=== PATIENT | male | born 2000 | race Caucasian/White ===

== ENCOUNTER 2025-05-27 12:56 | Emergency (ER) | payer MEDICAID ==
[~2025-05-27] VITALS: Ht 180.3 cm; Wt 87.0 kg
[2025-05-27 13:01] VITALS: O2SAT 99
[2025-05-27] MEDS: TETANUS, DIPHTHERIA, PERTUSSIS VAC/PF 0.5ML (>10YR OLD) IM ONE (14:15)
[2025-05-27] MEDS: LIDOCAINE HCL 1% 20ML VIAL INL ONE (14:18)
[2025-05-27] MEDS: BACITRACIN ZINC OINT UDPKT TOP ONE (14:18)
[2025-05-27] MEDS ORDERED: BO1 TP (16:37)
[2025-05-27] MEDS ORDERED: CEPH500T MT (16:37)
[2025-05-27 17:09] VITALS: BP 132/82; PULSE 88; RESP 15; TEMP 36.9; O2SAT 99
== END 2025-05-27 17:10 | disposition home or self-care (01) ==
LOC: ER 12:56
DX: S81.812A Laceration without foreign body, left lower leg, initial encounter (principal); Z79.899 Other long term (current) drug therapy; X58.XXXA Exposure to other specified factors, initial encounter; Y93.89 Activity, other specified; Y92.89 Other specified places as the place of occurrence of the external cause; Y99.8 Other external cause status
CPT/HCPCS: 90715; 12002; 90471; 99283; J2003; Z7610 ×3

== ENCOUNTER 2025-06-05 12:59 | Emergency (ER) | payer MEDICAID ==
[~2025-06-05] VITALS: Ht 172.7 cm; Wt 78.0 kg
[~2025-06-05 12:59] MED LIST: BO1 TP; CEPH500T MT
[2025-06-05 13:04] VITALS: O2SAT 100
[2025-06-05 14:27] VITALS: BP 116/64; PULSE 61; RESP 18; TEMP 37.1; O2SAT 100
== END 2025-06-05 14:28 | disposition home or self-care (01) ==
LOC: ER 12:59
DX: S81.812D Laceration without foreign body, left lower leg, subsequent encounter (principal); Z48.02 Encounter for removal of sutures; X58.XXXA Exposure to other specified factors, initial encounter
CPT/HCPCS: 99281; 99282

== ENCOUNTER 2025-06-13 08:08 | Emergency (ER) | payer MEDICAID ==
[~2025-06-13] VITALS: Ht 170.2 cm; Wt 75.0 kg
[2025-06-13 08:16] VITALS: O2SAT 98
[2025-06-13 10:17] VITALS: BP 116/77; PULSE 58; RESP 18; TEMP 36.7; O2SAT 100
== END 2025-06-13 10:41 | disposition home or self-care (01) ==
LOC: ER 08:08
DX: S81.812D Laceration without foreign body, left lower leg, subsequent encounter (principal); Z79.899 Other long term (current) drug therapy; X58.XXXD Exposure to other specified factors, subsequent encounter
CPT/HCPCS: 99282; Z7610